=== PATIENT | female | born 1930 | race Caucasian/White ===

== ENCOUNTER 2017-08-11 10:12 | Observation (INO) ==
[2017-08-14] MEDS ORDERED: Dextrose 50% in Water 50 ML Vial IV.PUSH PRN ×2 (03:06→03:12)
[2017-08-14] MEDS ORDERED: glipiZIDE 5 MG Tablet PO SCH ×2 (08:00)
[2017-08-14] MEDS ORDERED: Insulin NovoLIN Regular Correctional Sugar Inj SQ SCH (08:00)
[2017-08-14] MEDS ORDERED: Acetaminophen 325 MG Tablet PO PRN (08:10)
[2017-08-14] MEDS: Insulin NovoLOG Aspart Correctional Sugar Inj SQ SCH ×2 (08:40→13:45)
[2017-08-14] MEDS ORDERED: Rivaroxaban 15 MG Tablet PO SCH (09:00)
[2017-08-14] MEDS ORDERED: Metoprolol Tartrate 25 MG Tablet PO SCH (09:00)
[2017-08-14] MEDS ORDERED: Docusate Sodium 100 MG Capsule PO SCH (09:15)
--- NOTE | 2017-08-14 09:31 | P.PNIM ---
Subjective Interval history: Pt reports that she has not had a BM in a few days +Flatus, no abdominal pain Pt still with back pain but feels that the Ultram does help with this BP is better today Physical Exam Vital signs: Vital Signs 08/14/17 03:33 08/14/17 04:00 Temperature 97.9 F 97.6 F Pulse Rate 48 L 59 L Respiratory Rate 16 16 Blood Pressure 170/77 H 148/74 H Pulse Oximetry 94 L 96 Intake & Output 08/13/17 08/14/17 08/14/17 18:59 06:59 18:59 Weight 86 kg Other: Weight On Admission 86 kg Narrative: General: NAD, AAOx3 Chest: CTA Cardiac: Regular Abd: +BS, soft ND/NT Ext: No edema Results - Labs CBC & Chem 7: 08/12/17 06:50 08/12/17 06:50 Laboratory Results - last 24 hr 08/11/17 08/11/17 08/11/17 08:45 08:50 08:50 WBC 6.8 RBC 4.95 Hgb 15.4 H Hct 46.3 H MCV 93.5 MCH 31.1 MCHC 33.2 RDW 16.0 Plt Count 229 MPV 9.1 Neut % (Auto) 64.6 Lymph % (Auto) 26.4 Mills % (Auto) 7.1 Eos % (Auto) 1.4 Baso % (Auto) 0.5 Neut # (Auto) 4.4 Lymph # (Auto) 1.8 Mills # (Auto) 0.5 Eos # (Auto) 0.1 Baso # (Auto) 0.0 CBC Comment DIFF FINAL Platelet Estimate NORMAL Plt Morphology Comment NORMAL PT INR Sodium 143 Potassium 4.3 Chloride 110 H Carbon Dioxide 23.1 Anion Gap 10 BUN 13 Creatinine 1.05 H Estimated GFR 49 L POC Glucose Random Glucose 124 H Calcium 8.7 Magnesium Total Bilirubin 0.7 AST 21 ALT 23 Alkaline Phosphatase 70 Total Protein 6.9 Albumin 3.5 Urine Color Domonique Urine Turbidity CLOUDY H Urine pH 6.0 Ur Specific [place] 1.019 Urine Protein NEG Urine Glucose (UA) NEG Urine Ketones TRACE H Urine Occult Blood NEG Urine Nitrite NEG Urine Bilirubin NEG Urine Urobilinogen 2.0 H Ur Leukocyte Esterase SMALL H Urine RBC 3 Urine WBC 37 H Ur Squamous Epith Cells 12 Urine Bacteria FEW H Hyaline Casts 3 Urine Mucus FEW H Micro UA Comment CULTURE INDICATED 08/11/17 08/12/17 08/12/17 10:00 06:50 06:50 WBC 8.1 RBC 4.89 Hgb 14.9 Hct 45.6 MCV 93.2 MCH 30.4 MCHC 32.7 RDW 15.9 Plt Count 156 D MPV 8.8 Neut % (Auto) 61.5 Lymph % (Auto) 28.0 Mills % (Auto) 7.7 Eos % (Auto) 2.4 Baso % (Auto) 0.4 Neut # (Auto) 5.0 Lymph # (Auto) 2.3 Mills # (Auto) 0.6 Eos # (Auto) 0.2 Baso # (Auto) 0.0 CBC Comment DIFF FINAL Platelet Estimate Plt Morphology Comment PT 12.7 H INR 1.3 Sodium 143 Potassium 4.2 Chloride 109 H Carbon Dioxide 26.6 Anion Gap 7 BUN 15 Creatinine 1.00 Estimated GFR 52 L POC Glucose Random Glucose 131 H Calcium 8.6 Magnesium 1.9 Total Bilirubin AST ALT Alkaline Phosphatase Total Protein Albumin Urine Color Urine Turbidity Urine pH Ur Specific [place] Urine Protein Urine Glucose (UA) Urine Ketones Urine Occult Blood Urine Nitrite Urine Bilirubin Urine Urobilinogen Ur Leukocyte Esterase Urine RBC Urine WBC Ur Squamous Epith Cells Urine Bacteria Hyaline Casts Urine Mucus Micro UA Comment 08/14/17 08:19 WBC RBC Hgb Hct MCV MCH MCHC RDW Plt Count MPV Neut % (Auto) Lymph % (Auto) Mills % (Auto) Eos % (Auto) Baso % (Auto) Neut # (Auto) Lymph # (Auto) Mills # (Auto) Eos # (Auto) Baso # (Auto) CBC Comment Platelet Estimate Plt Morphology Comment PT INR Sodium Potassium Chloride Carbon Dioxide Anion Gap BUN Creatinine Estimated GFR POC Glucose 104 Random Glucose Calcium Magnesium Total Bilirubin AST ALT Alkaline Phosphatase Total Protein Albumin Urine Color Urine Turbidity Urine pH Ur Specific [place] Urine Protein Urine Glucose (UA) Urine Ketones Urine Occult Blood Urine Nitrite Urine Bilirubin Urine Urobilinogen Ur Leukocyte Esterase Urine RBC Urine WBC Ur Squamous Epith Cells Urine Bacteria Hyaline Casts Urine Mucus Micro UA Comment Assessment and Plan - Assessment (1) Back pain Code(s): M54.9 - Dorsalgia, unspecified Status: Acute Plan: Acute on chronic hip/knee/back pain - Pt is an 87 y/o WF with HTN, CAD with reported hx of MD in 2008, hypothyroidism, diabetes with CKD, stage 3, and hx of CVA in 2016. - Pt presented to the ED at [facility] [place] on 08/11/17 with complaints of back pain, right hip pain and left knee pain. This apparently is a chronic intermittent issue but last night this worsened and she wasn't able to move much at all last night or this morning. In the ED she was given a dose of [place] with relief. - Tylenol PRN for pain - Ultram PRN for pain - Supportive care - Pt refusing SNF. - Anticipate d/c later today if pain is controlled and BP is controlled - Pt will need to followup with her PCP, Dr. Dietz in 1 week - Pt was seen by PT evaluate and recommended for home with no PT recommendations on 08/11 but given her pain control issues and her BP control issues we will arrange for HHC/PT (2) Atrial fib/flutter, transient Status: Chronic Plan: A. fib/flutter HTN - Cont. home meds, Metoprolol 75mg BID, Losartan 100mg po daily, Xarelto daily - Clonidine PRN - Monitor (3) Diabetes Code(s): E11.9 - Type 2 diabetes mellitus without complications Status: Chronic Plan: - Cont. home meds - NovoLog SSI - Accu checks (4) HTN (hypertension) Code(s): I10 - Essential (primary) hypertension Status: Acute Plan: - Home meds continued - PRN BP control (5) Abnormal finding on urinalysis Code(s): R82.90 - Unspecified abnormal findings in urine Status: Acute Plan: - A UA was taken in the ED and was abnormal but pt denies any urinary frequency , dysuria, fever/chills, hematuria or abdominal pain. - Urine culture with probable contaminants - There was some question of confusion by the ER as they thought she was taking extra pills but the pt is prescribed Metoprolol 75mg BID (she takes 25mg tablets ) but pt is very alert and oriented at the time of my evaluation. (6) Hypothyroidism Code(s): E03.9 - Hypothyroidism, unspecified Status: Chronic Plan: - Cont. home meds - Attending Attestation The exam, history, and the medical decision-making described in the above note were completed with the assistance of the mid-level provider. I reviewed and agree with the findings presented. I attest that I had a [id number] encounter with the patient on the same day, and personally performed and documented my assessment and findings in the medical record. Patient examined. Assessment and plan formulated with Delfina Jackson PA-C. I agree with the above. (3) Diabetes Qualifiers: Diabetes mellitus type: type 2
--- NOTE | 2017-09-09 13:24 | P.DS ---
<Delfina Jackson E - Last Filed: 09/09/17 13:21> Date of admission: 08/11/17 10:13 Primary care physician: Andrade Dietz MD Attending physician on discharge: Uday Mora Anticipated date of discharge: 08/14/17 Brief History from admission: Ms. Cheung is a pleasant 87 y/o WF with HTN, CAD with reported hx of PA in 2008, hypothyroidism, diabetes with CKD, stage 3, and hx of CVA in 2016. Pt presented to the ED at [facility] [place] on 08/11/17 with complaints of back pain, right hip pain and left knee pain. This apparently is a chronic intermittent issue but last night this worsened and she wasn't able to move much at all last night or this morning. In the ED she was given a dose of [place] with some relief. A UA was taken in the ED and was abnormal but pt denies any urinary frequency, dysuria, fever/chills, hematuria or abdominal pain. She reports that in the past she has had issues with UTIs but not recently. There was some question of confusion by the ER but pt is very alert and oriented at the time of my evaluation. The ER felt she was an unsafe discharge from home. She lives independently and takes care of her own ADLs normally. DS: Diagnosis - Discharge Diagnosis (1) Back pain Status: Acute (2) Atrial fib/flutter, transient Status: Chronic (3) Diabetes Status: Chronic (4) HTN (hypertension) Status: Acute (5) Abnormal finding on urinalysis Status: Acute (6) Hypothyroidism Status: Chronic DS: Medications - Discharge Medications Prescriptions: tramadol [Ultram] 50 mg PO Q6H PRN #12 tab PRN Reason: pain DS: Summary Hospital Course: Acute on chronic hip/knee/back pain - Pt is an 87 y/o WF with HTN, CAD with reported hx of PA in 2008, hypothyroidism, diabetes with CKD, stage 3, and hx of CVA in 2016. - Pt presented to the ED at [facility] [place] on 08/11/17 with complaints of back pain, right hip pain and left knee pain. This apparently is a chronic intermittent issue but last night this worsened and she wasn't able to move much at all last night or this morning. In the ED she was given a dose of [place] with relief. - Tylenol PRN for pain - Ultram PRN for pain - Supportive care - Pt refusing SNF. - Anticipate d/c later today if pain is controlled and BP is controlled - Pt will need to followup with her PCP, Dr. Dietz in 1 week - Pt was seen by PT evaluate and recommended for home with no PT recommendations on 08/11 but given her pain control issues and her BP control issues we will arrange for HHC/PT Atrial fib/flutter, transient HTN - Cont. home meds, Metoprolol 75mg BID, Losartan 100mg po daily, Xarelto daily - Clonidine PRN - Monitor Diabetes - Cont. home meds - NovoLog SSI - Accu checks HTN (hypertension) - Home meds continued - PRN BP control Abnormal finding on urinalysis - A UA was taken in the ED and was abnormal but pt denies any urinary frequency , dysuria, fever/chills, hematuria or abdominal pain. - Urine culture with probable contaminants - There was some question of confusion by the ER as they thought she was taking extra pills but the pt is prescribed Metoprolol 75mg BID (she takes 25mg tablets ) but pt is very alert and oriented at the time of my evaluation. Hypothyroidism - Cont. home meds - Time Spent with Patient Total time spent providing and/or coordinating discharge services: Results Procedures completed during hospitalization: see summary <Uday Mora - Last Filed: 09/09/17 13:44> Date of admission: 08/11/17 10:13 Primary care physician: Andrade Dietz MD DS: Summary - Time Spent with Patient Total time spent providing and/or coordinating discharge services: Discharge Plan - Discharge Order Discharge Orders: Discharge Order (Routine); Ordered 08/14/17 Ordered By: Delfina Jackson - Physicians Team Primary Care Provider: Andrade Dietz Attending Provider: Uday Mora Other Providers: Orly Hood - Rxs /Orders / Referrals /Forms Prescriptions: New tramadol [Ultram] 50 mg Tablet 50 mg PO Q6H PRN (Reason: pain) Qty: 12 RF: 0 Continue gabapentin 100 mg Capsule 100 mg PO HS glipizide 5 mg Tablet 5 mg PO DAILY levothyroxine 137 mcg Tablet 137 mcg PO DAILY losartan 100 mg Tablet 100 mg PO DAILY metoprolol tartrate 75 mg Tablet 75 mg PO BID nitroglycerin 0.4 mg Tablet, Sublingual 0.4 mg SUBLINGUAL Q5-15M PRN (Reason: Chest Pain) rivaroxaban 20 mg Tablet 20 mg PO DAILY Referrals: Andrade Dietz MD [Primary Care Provider] - See Instructions - Discharge Instructions Patient Printed Instructions: Hypoglycemia in a Person with Diabetes (ED)
== END 2017-08-14 17:21 | disposition home health service (06) ==
LOC: UNDODISOB → NEPHCDU 10:12
PROVIDERS: ADMIT Hospitalist; ATTEND Hospitalist